=== PATIENT | male | born 1975 | race Two or more races ===

== ENCOUNTER 2019-12-18 12:46 | Emergency (ER) | payer OTHER ==
[~2019-12-18] VITALS: Ht 172.7 cm; Wt 108.9 kg
[2019-12-18] MEDS ORDERED: AVALIDE 300-121 EACH PO (13:08)
[2019-12-18] MEDS ORDERED: TOPROL XL50 M1 PO (13:09)
== END 2019-12-18 17:13 | disposition designated cancer center or children's hospital (05) ==
LOC: ER 12:46
DX: S61.322A Laceration with foreign body of right middle finger with damage to nail, initial encounter (principal); W45.8XXA Other foreign body or object entering through skin, initial encounter; Y93.89 Activity, other specified; Y92.69 Other specified industrial and construction area as the place of occurrence of the external cause; Y99.8 Other external cause status

== ENCOUNTER 2023-04-10 17:17 | Inpatient (IN) | payer OTHER ==
[~2023-04-10] VITALS: Ht 172.7 cm; Wt 99.8 kg
[~2023-04-10 17:17] MED LIST: AVALIDE 300-121 EACH PO; TOPROL XL50 M1 PO
[2023-04-10] MEDS ORDERED: FAMOTIDINE20 MG PO (17:28)
[2023-04-10] MEDS ORDERED: JARDIANCE10 MG PO (17:28)
[2023-04-10] MEDS ORDERED: METFORMIN HCL750 MG PO (17:28)
--- NOTE | 2023-04-10 17:32 | NUR ---
SE RECIBE PTE ALERTA ORIENTADO X3.PTE REFIERE SENTIR DOLOR DE DIVERTICULOS DESDE HACE 2 HORAS.PTE REFIERE TENER HX DE DIVERTICULOS.PTE DE .SE PAU S/V Y SE UBICA EN OBSERVACION.
--- NOTE | 2023-04-10 18:15 | NUR ---
PACIENTE EVALAUDO POR DR. PEREIRA QUIEN ORDENA TRATAMIENTO, SE EDUCA ACERCA DEL MISMO Y REFEIRE ENTENDER. SE CANALIZA Y COLECTAN MUESTRAS DE LABORTAORIO MEDIANTE MEDIDAS ASEPTICAS. SE ADMINISTRAN MEDICAMENTOS MANNIE ORDEN MEDICA
--- NOTE | 2023-04-11 00:40 | NUR ---
SE RECIBE PTE ALERTA Y ORIENTADO X3 EN JU CON BARANDAS ELEVADAS EN COMPANIA DE FAMILIAR. PTE CANALIZADO AREA ART DE EDEMA Y DE ENROJECIMIENTO. PTE EN ESPERA DE ENTREGAR MUESTRA DE U/A Y LECTURA DE CT. SE MANTIENE BAJO OBSERVACION POR CAMBIOS.
--- NOTE | 2023-04-11 07:31 | NUR ---
MASCULINO ALERTA Y ORIENTADA X3 EN JU POSICION MAS BAJA Y BARANDAS ELEVADAS. VENOPUNCION PATENTE CON 0.9%NSS @ 150 MLS/HR. PENDIENTE RESULTADO DE U/A Y CONSULTA CON DR RYDER. SE MANTIENE BAJO OBSERVACION.
== END 2023-04-14 13:48 | disposition home or self-care (01) | DRG 392 ==
LOC: ER 17:17 → MEDI 04-11 08:48
PROVIDERS: General Practice; ADMIT Internal Medicine; ATTEND Internal Medicine
PROC: BW21YZZ Computerized Tomography (CT Scan) of Abdomen and Pelvis using Other Contrast (ICD-10-PCS; principal; 2023-04-10)
DX: K57.32 Diverticulitis of large intestine without perforation or abscess without bleeding (principal); E11.9 Type 2 diabetes mellitus without complications; I10 Essential (primary) hypertension; Z79.4 Long term (current) use of insulin

== ENCOUNTER 2023-04-19 15:28 | Outpatient (CLI) | payer OTHER ==
[~2023-04-19 15:28] MED LIST changes: +FAMOTIDINE20 MG PO; +JARDIANCE10 MG PO; +METFORMIN HCL750 MG PO
== END 2023-04-19 15:41 | disposition home or self-care (01) ==
LOC: RAD 15:28
PROVIDERS: ATTEND Colon & Rectal Surgery
DX: K57.32 Diverticulitis of large intestine without perforation or abscess without bleeding (principal); K92.1 Melena